=== PATIENT | female | born 1940 | race Caucasian/White ===

== ENCOUNTER 2017-12-30 09:33 | Outpatient (CLI) | payer MEDICARE | END 2017-12-30 09:34 | disposition home or self-care (01) | LOC: BICMAMMO 09:33 | PROVIDERS: ATTEND Obstetrics & Gynecology | DX: Z12.31 Encounter for screening mammogram for malignant neoplasm of breast (principal); R92.1 Mammographic calcification found on diagnostic imaging of breast | CPT/HCPCS: 77063; 77067 ==

== ENCOUNTER 2019-01-03 08:38 | Outpatient (CLI) | payer MEDICARE ==
--- NOTE | 2019-01-03 09:25 | MMO ---
Bilateral MAMMO Bilat Screen [facility]. CLINICAL HISTORY: Patient is 78 years old and is seen for screening. The patient has no family history of breast cancer. The patient has no personal history of cancer. VIEWS: The views performed were: bilateral craniocaudal with tomosynthesis and bilateral mediolateral oblique with tomosynthesis. FILMS COMPARED: The present examination has been compared to a prior imaging study performed at [facility] on 12/30/2017. MAMMOGRAM FINDINGS: The breasts are almost entirely fat. There are no suspicious masses, suspicious calcifications, or new areas of architectural distortion. IMPRESSION: THERE IS NO MAMMOGRAPHIC EVIDENCE OF MALIGNANCY. A ROUTINE FOLLOW-UP MAMMOGRAM IN 1 YEAR IS RECOMMENDED. THE RESULTS OF THIS EXAM WERE SENT TO THE PATIENT. ACR BI-RADS Category 1 - Negative MAMMOGRAPHY NOTE: 1. A negative mammogram report should not delay a biopsy if a dominant of clinically suspicious mass is present. 2. Approximately 10% to 15% of breast cancers are not detected by mammography. 3. Adenosis and dense breasts may obscure an underlying neoplasm.
== END 2019-01-03 08:39 | disposition home or self-care (01) ==
LOC: BICMAMMO 08:38
PROVIDERS: ATTEND Internal Medicine
DX: Z12.31 Encounter for screening mammogram for malignant neoplasm of breast (principal)
CPT/HCPCS: 77063; 77067

== ENCOUNTER 2020-01-10 07:46 | Outpatient (CLI) | payer MEDICARE ==
--- NOTE | 2020-01-10 08:29 | MMO ---
Bilateral MAMMO Bilat Screen [facility]. CLINICAL HISTORY: Patient is 79 years old and is seen for screening. The patient has no family history of breast cancer. The patient has no personal history of cancer. VIEWS: The views performed were: bilateral craniocaudal with tomosynthesis and bilateral mediolateral oblique with tomosynthesis. FILMS COMPARED: The present examination has been compared to prior imaging studies performed at [facility] on 12/30/2017 and 01/03/2019, and at [facility] on 09/24/2015 and 12/23/2016. This study has been interpreted with the assistance of computer-aided detection. MAMMOGRAM FINDINGS: There are scattered fibroglandular densities. There are stable benign appearing calcifications seen in both breasts. There are no suspicious masses, suspicious calcifications, or new areas of architectural distortion. IMPRESSION: THERE IS NO MAMMOGRAPHIC EVIDENCE OF MALIGNANCY. A ROUTINE FOLLOW-UP MAMMOGRAM IN 1 YEAR IS RECOMMENDED. THE RESULTS OF THIS EXAM WERE SENT TO THE PATIENT. ACR BI-RADS Category 2 - Benign finding MAMMOGRAPHY NOTE: 1. A negative mammogram report should not delay a biopsy if a dominant of clinically suspicious mass is present. 2. Approximately 10% to 15% of breast cancers are not detected by mammography. 3. Adenosis and dense breasts may obscure an underlying neoplasm. Reported by: CHEMA SUAREZ MD Electonically Signed: [id number]
== END 2020-01-10 07:47 | disposition home or self-care (01) ==
LOC: BICMAMMO 07:46
PROVIDERS: ATTEND Internal Medicine
DX: Z12.31 Encounter for screening mammogram for malignant neoplasm of breast (principal)
CPT/HCPCS: 77063; 77067

== ENCOUNTER 2021-01-14 08:48 | Outpatient (CLI) | payer MEDICARE | END 2021-01-14 08:49 | disposition home or self-care (01) | LOC: BICMAMMO 08:48 | PROVIDERS: ATTEND Internal Medicine | DX: Z12.31 Encounter for screening mammogram for malignant neoplasm of breast (principal) | CPT/HCPCS: 77063; 77067 ==

== ENCOUNTER 2022-01-29 09:08 | Outpatient (CLI) | payer MEDICARE | END 2022-01-29 09:09 | disposition home or self-care (01) | LOC: BICMAMMO 09:08 | PROVIDERS: ATTEND Internal Medicine | DX: Z12.31 Encounter for screening mammogram for malignant neoplasm of breast (principal) | CPT/HCPCS: 77063; 77067 ==

== ENCOUNTER 2023-02-12 13:45 | Inpatient (IN) | payer MEDICARE ==
[2023-02-12 14:10] LABS: #Monocytes 0.4 thou/uL (0.11-0.59); #Neutrophils 6.6 thou/uL (1.40-6.50); %Basophils 0.2 % (0.0-1.0); %Eosinophils 0.3 % (0.0-10.0); %Lymphocytes 17.5 % (21.0-51.0); %Monocytes 4.5 % (0.0-10.0); Hematocrit 39.2 % (36.0-47.0); Mean Corpuscular HGB CONC 33.2 g/dL (32.0-36.0); Mean Corpuscular Hemoglobin 32.4 pg (27.0-31.0); Mean Corpuscular Volume 97.8 fl (78.0-98.0); Mean Platelet Volume 10.3 fL (7.4-10.4); Platelet Count 274 10x3/uL (130-400); Red Blood Cell (RBC) Count 4.01 mill/uL (4.20-5.40); White Blood Cell (WBC) Count 8.6 10x3/uL (4.8-10.8)
[2023-02-12 14:35] LABS: ALT (SGPT) 11 U/L (8-55); AST (SGOT) 19 U/L (5-34); Albumin 4.6 g/dL (3.4-4.8); Alkaline Phosphatase 52 U/L (40-110); Anion Gap 15 mmol/L (10-20); BUN (Urea Nitrogen) 21 mg/dL (9.8-20.1); Bilirubin, Total 0.4 mg/dL (0.2-1.2); Calc. Creatinine Clearance 0 mL/min (70-130); Calcium 10.6 mg/dL (7.8-10.44); Carbon Dioxide 19 mmol/L (23-31); Chloride 102 mmol/L (98-107); Estimated GFR 71; Globulin 3.1 g/dL (2.4-3.5); Glucose 171 mg/dL (83-110); Potassium 3.8 mmol/L (3.5-5.1); Protein, Total 7.7 g/dL (5.8-8.1); Sodium 132 mmol/L (136-145)
[2023-02-12 14:37] LABS: Troponin I Less than 0.010 ng/mL (< 0.028)
[2023-02-12 16:52] LABS: Bacteria/HPF None Seen HPF (None Seen); Bilirubin Negative (Negative); Blood, Urine Negative (Negative); CAUTI Indications for Culture Dysuria,urgency,freq; Clarity Clear (Clear); Glucose, Urine (Dipstick) Normal (Negative); Ketone, Urine Negative (Negative); Leukocyte Negative Leu/uL (Negative); Nitrite Negative (Negative); Protein, Urine (Dipstick) Negative (Neg-Trace); RBC/HPF 0-3 HPF (0-3); Specific Gravity, Urine 1.018 (1.002-1.036); Squamous Epithelial None Seen HPF (0-3); Urobilinogen Normal mg/dL (Less than 2); WBC/HPF 0-3 HPF (0-3); pH, Urine 5.5 (5.0-9.0)
[2023-02-12 16:54] LABS: Urine Culture Reflex No No
[2023-02-12] MEDS ORDERED: Ondansetron PF 4 MG/2 ML Vial ONE (18:31)
[2023-02-12] MEDS ORDERED: Meclizine HCl 25 MG TAB ONE (18:39)
[2023-02-12] MEDS ORDERED: Ondansetron PF 4 MG/2 ML Vial IVP PRN (18:57)
[2023-02-12] MEDS ORDERED: Ondansetron ODT 4 MG TAB PO PRN (18:57)
[2023-02-12] MEDS ORDERED: Acetaminophen 325 MG TAB PO PRN (19:01)
[2023-02-12] MEDS ORDERED: Sodium Chloride 0.9% 1,000 ML IV SCH (19:15)
[2023-02-12 22:46] VITALS: BMI 28.7
[2023-02-13] MEDS ORDERED: Meclizine HCl 25 MG TAB PO PRN (03:00)
[2023-02-13 05:17] LABS: #Monocytes 0.7 thou/uL (0.11-0.59); #Neutrophils 5.2 thou/uL (1.40-6.50); %Basophils 0.1 % (0.0-1.0); %Eosinophils 0.3 % (0.0-10.0); %Lymphocytes 22.4 % (21.0-51.0); %Neutrophils 67.9 % (42.0-75.0); Hematocrit 35.2 % (36.0-47.0); Hemoglobin 11.5 g/dL (12.0-16.0); Mean Corpuscular HGB CONC 32.7 g/dL (32.0-36.0); Mean Corpuscular Hemoglobin 32.7 pg (27.0-31.0); Mean Platelet Volume 10.5 fL (7.4-10.4); Platelet Count 227 10x3/uL (130-400); RBC Distribution Width 12.1 % (11.5-14.5); Red Blood Cell (RBC) Count 3.52 mill/uL (4.20-5.40); White Blood Cell (WBC) Count 7.6 10x3/uL (4.8-10.8)
[2023-02-13 05:39] LABS: Anion Gap 10 mmol/L (10-20); BUN (Urea Nitrogen) 13 mg/dL (9.8-20.1); Calc. Creatinine Clearance 72 mL/min (70-130); Calcium 9.1 mg/dL (7.8-10.44); Carbon Dioxide 24 mmol/L (23-31); Chloride 106 mmol/L (98-107); Estimated GFR 86; Glucose 91 mg/dL (83-110); Sodium 136 mmol/L (136-145)
[2023-02-13] MEDS: Atorvastatin Calcium 40 MG TAB PO SCH (20:21)
[2023-02-14 06:18] LABS: #Eosinphils 0.1 thou/uL (0.0-0.7); #Monocytes 0.5 thou/uL (0.11-0.59); #Neutrophils 3.9 thou/uL (1.40-6.50); %Basophils 0.3 % (0.0-1.0); %Eosinophils 1.4 % (0.0-10.0); %Lymphocytes 31.8 % (21.0-51.0); %Monocytes 7.9 % (0.0-10.0); %Neutrophils 58.1 % (42.0-75.0); Hematocrit 35.3 % (36.0-47.0); Hemoglobin 11.5 g/dL (12.0-16.0); Mean Corpuscular HGB CONC 32.6 g/dL (32.0-36.0); Mean Corpuscular Hemoglobin 32.5 pg (27.0-31.0); Mean Corpuscular Volume 99.7 fl (78.0-98.0); Mean Platelet Volume 10.7 fL (7.4-10.4); Platelet Count 231 10x3/uL (130-400); RBC Distribution Width 12.3 % (11.5-14.5); Red Blood Cell (RBC) Count 3.54 mill/uL (4.20-5.40); White Blood Cell (WBC) Count 6.6 10x3/uL (4.8-10.8)
[2023-02-14 06:39] LABS: Anion Gap 11 mmol/L (10-20); BUN (Urea Nitrogen) 17 mg/dL (9.8-20.1); Calc. Creatinine Clearance 68 mL/min (70-130); Carbon Dioxide 23 mmol/L (23-31); Chloride 109 mmol/L (98-107); Estimated GFR 82; Glucose 91 mg/dL (83-110); Sodium 139 mmol/L (136-145)
[2023-02-14] MEDS: Amlodipine 5 MG TAB PO SCH (08:53)
[2023-02-14] MEDS: Lisinopril 20 MG TAB PO SCH (08:53)
[2023-02-14] MEDS ORDERED: hydrALAZINE 25 MG TAB PO PRN (11:52)
[2023-02-14] MEDS ORDERED: Polyethylene Glycol 3350 17 GM Packet PO PRN (11:59)
[2023-02-14] MEDS ORDERED: Electrolyte Replacement Protocol FS PRN (12:00)
[2023-02-14] MEDS ORDERED: Electrolyte Replacement Protocol 1 EACH FS SCH (12:00)
[2023-02-14 12:37] LABS: Magnesium 2.1 mg/dL (1.6-2.6)
[2023-02-14 16:09] LABS: Phosphorus 2.3 mg/dL (2.3-4.7)
[2023-02-14] MEDS: Heparin 5,000 UNITS/ML VIAL SC SCH (20:21)
[2023-02-14] MEDS: Atorvastatin Calcium 40 MG TAB PO SCH (20:22)
[2023-02-14] MEDS: Cyanocobalamin (Vitamin B-12) 1,000 MCG TAB PO SCH (20:22)
[2023-02-14] MEDS: Folic Acid 1 MG TAB PO SCH (20:22)
[2023-02-14] MEDS: Docusate 100 MG CAP PO SCH (20:22)
[2023-02-14] MEDS: Multivit, Therapeutic 1 TAB PO SCH (20:22)
[2023-02-15 04:52] LABS: #Eosinphils 0.1 thou/uL (0.0-0.7); #Monocytes 0.6 thou/uL (0.11-0.59); #Neutrophils 3.9 thou/uL (1.40-6.50); %Basophils 0.5 % (0.0-1.0); %Eosinophils 1.4 % (0.0-10.0); %Lymphocytes 27.3 % (21.0-51.0); %Neutrophils 61.6 % (42.0-75.0); Hematocrit 36.3 % (36.0-47.0); Hemoglobin 12.2 g/dL (12.0-16.0); Mean Corpuscular HGB CONC 33.6 g/dL (32.0-36.0); Mean Corpuscular Hemoglobin 32.9 pg (27.0-31.0); Mean Corpuscular Volume 97.8 fl (78.0-98.0); Mean Platelet Volume 10.4 fL (7.4-10.4); Platelet Count 218 10x3/uL (130-400); RBC Distribution Width 12.2 % (11.5-14.5); Red Blood Cell (RBC) Count 3.71 mill/uL (4.20-5.40); White Blood Cell (WBC) Count 6.3 10x3/uL (4.8-10.8)
[2023-02-15 05:20] LABS: Anion Gap 12 mmol/L (10-20); BUN (Urea Nitrogen) 16 mg/dL (9.8-20.1); Calc. Creatinine Clearance 74 mL/min (70-130); Calcium 9.1 mg/dL (7.8-10.44); Carbon Dioxide 22 mmol/L (23-31); Chloride 107 mmol/L (98-107); Estimated GFR 87; Glucose 100 mg/dL (83-110); Potassium 3.7 mmol/L (3.5-5.1); Sodium 137 mmol/L (136-145)
[2023-02-15] MEDS: Docusate 100 MG CAP PO SCH ×2 (09:11→20:09)
[2023-02-15] MEDS: Amlodipine 5 MG TAB PO SCH (09:11)
[2023-02-15] MEDS: Lisinopril 20 MG TAB PO SCH (09:11)
[2023-02-15] MEDS: Heparin 5,000 UNITS/ML VIAL SC SCH ×2 (09:12→20:08)
[2023-02-15] MEDS ORDERED: Potassium Chloride 20 MEQ TAB PO SCH (09:30)
[2023-02-15] MEDS: Atorvastatin Calcium 40 MG TAB PO SCH (20:09)
[2023-02-15] MEDS: Multivit, Therapeutic 1 TAB PO SCH (20:09)
[2023-02-15] MEDS: Cyanocobalamin (Vitamin B-12) 1,000 MCG TAB PO SCH (20:09)
[2023-02-15] MEDS: Folic Acid 1 MG TAB PO SCH (20:09)
[2023-02-16] MEDS ORDERED: Midazolam HCl 2 mg/2 ml Vial ONE (08:27)
[2023-02-16] MEDS ORDERED: fentaNYL 50 mcg/mL 1 mL Vial ONE (08:27)
[2023-02-16] MEDS ORDERED: CEFAZOLIN 1 GM VIAL ONE (08:28)
[2023-02-16] MEDS ORDERED: Lidocaine 1% (PF) 30 ML VIAL ONE ×2 (08:28→09:53)
[2023-02-16] MEDS ORDERED: Gentamicin 80 MG/2 ML VIAL ONE (08:28)
[2023-02-16] MEDS ORDERED: CEFAZOLIN 2 GM VIAL ONE (08:28)
[2023-02-16] MEDS ORDERED: Sodium Chloride 0.9% 1,000 ML IV SCH (08:30)
[2023-02-16] MEDS ORDERED: Aspirin 81 mg Enteric Coated Tablet PO SCH (09:00)
[2023-02-16] MEDS: Lisinopril 20 MG TAB PO SCH (11:04)
[2023-02-16] MEDS: Amlodipine 5 MG TAB PO SCH (11:04)
[2023-02-16] MEDS: Docusate 100 MG CAP PO SCH (11:04)
[2023-02-16] MEDS ORDERED: Cephalexin 250 MG CAP PO SCH (15:00)
[2023-02-16 15:33] VITALS: BP 160/70
[2023-02-16 15:49] VITALS: TEMP 98.4
== END 2023-02-16 18:50 | disposition home or self-care (01) | DRG 243 ==
LOC: ERS 13:45 → ERHOLD 18:43 → 2SE 22:23 → OBSVTOIN 02-13 16:42
PROVIDERS: ADMIT Physician Assistant; ATTEND Internal Medicine
PROC: 0JH606Z Insertion of Pacemaker, Dual Chamber into Chest Subcutaneous Tissue and Fascia, Open Approach (ICD-10-PCS; principal; 2023-02-16)
PROC: 02H63JZ Insertion of Pacemaker Lead into Right Atrium, Percutaneous Approach (ICD-10-PCS; 2023-02-16)
PROC: 02HK3JZ Insertion of Pacemaker Lead into Right Ventricle, Percutaneous Approach (ICD-10-PCS; 2023-02-16)
PROC: B5171ZZ Fluoroscopy of Left Subclavian Vein using Low Osmolar Contrast (ICD-10-PCS; 2023-02-16)
DX: I49.5 Sick sinus syndrome (principal); E87.1 Hypo-osmolality and hyponatremia; E87.20 Acidosis, unspecified; E78.5 Hyperlipidemia, unspecified; Z90.49 Acquired absence of other specified parts of digestive tract; Z87.891 Personal history of nicotine dependence; Z79.899 Other long term (current) drug therapy; Z98.49 Cataract extraction status, unspecified eye; Z79.82 Long term (current) use of aspirin; I44.30 Unspecified atrioventricular block; I12.9 Hypertensive chronic kidney disease with stage 1 through stage 4 chronic kidney disease, or unspecified chronic kidney disease; N18.2 Chronic kidney disease, stage 2 (mild); D53.9 Nutritional anemia, unspecified; I35.0 Nonrheumatic aortic (valve) stenosis; E86.0 Dehydration
CPT/HCPCS: 33208; 36415; 51701; 70450; 71045; 80048; 80053; 81001; 83735; 84100; 84484; 85025; 93005; 93306; 93798; 96361; 96374; 99152; 99153; C1785; C1898; G0378; J0690; J1580; J1644; J2001; J2250; J2405; J3010; J7050

== ENCOUNTER 2023-04-08 08:36 | Outpatient (CLI) | payer MEDICARE | END 2023-04-08 08:37 | disposition home or self-care (01) | LOC: BICMAMMO 08:36 | PROVIDERS: ATTEND Family Medicine | DX: Z12.31 Encounter for screening mammogram for malignant neoplasm of breast (principal) | CPT/HCPCS: 77063; 77067 ==

== ENCOUNTER 2023-06-02 15:02 | Observation (INO) | payer MEDICARE ==
[2023-06-02] MEDS ORDERED: Labetalol HCl 100 MG/20 ML VIAL ONE (15:59)
[2023-06-02 16:17] LABS: Bacteria/HPF None Seen HPF (None Seen); Bilirubin Negative (Negative); Blood, Urine Negative (Negative); CAUTI Indications for Culture Dysuria,urgency,freq; Clarity Clear (Clear); Glucose, Urine (Dipstick) Normal (Negative); Ketone, Urine Negative (Negative); Leukocyte 75 Leu/uL (Negative); Nitrite Negative (Negative); Protein, Urine (Dipstick) Negative (Neg-Trace); RBC/HPF 0-3 HPF (0-3); Specific Gravity, Urine 1.006 (1.002-1.036); Squamous Epithelial 0-3 HPF (0-3); Urobilinogen Normal mg/dL (Less than 2); pH, Urine 6.5 (5.0-9.0)
[2023-06-02 16:18] LABS: Urine Culture Reflex No No
[2023-06-02 16:40] LABS: #Eosinphils 0.1 thou/uL (0.0-0.7); #Monocytes 0.7 thou/uL (0.11-0.59); #Neutrophils 4.3 thou/uL (1.40-6.50); %Basophils 0.3 % (0.0-1.0); %Eosinophils 1.2 % (0.0-10.0); %Lymphocytes 25.7 % (21.0-51.0); %Monocytes 9.6 % (0.0-10.0); %Neutrophils 63.1 % (42.0-75.0); Hematocrit 39.6 % (36.0-47.0); Hemoglobin 13.4 g/dL (12.0-16.0); Mean Corpuscular HGB CONC 33.8 g/dL (32.0-36.0); Mean Corpuscular Hemoglobin 32.9 pg (27.0-31.0); Mean Corpuscular Volume 97.3 fl (78.0-98.0); Mean Platelet Volume 10.4 fL (7.4-10.4); Platelet Count 272 10x3/uL (130-400); RBC Distribution Width 12.3 % (11.5-14.5); Red Blood Cell (RBC) Count 4.07 mill/uL (4.20-5.40); White Blood Cell (WBC) Count 6.8 10x3/uL (4.8-10.8)
[2023-06-02 17:00] LABS: ALT (SGPT) 11 U/L (8-55); AST (SGOT) 16 U/L (5-34); Albumin 4.8 g/dL (3.4-4.8); Alkaline Phosphatase 58 U/L (40-110); Anion Gap 12 mmol/L (10-20); BUN (Urea Nitrogen) 17 mg/dL (9.8-20.1); Bilirubin, Total 0.5 mg/dL (0.2-1.2); Calc. Creatinine Clearance 0 mL/min (70-130); Calcium 10.2 mg/dL (7.8-10.44); Carbon Dioxide 29 mmol/L (23-31); Chloride 102 mmol/L (98-107); Estimated GFR 65; Glucose 109 mg/dL (83-110); Potassium 3.9 mmol/L (3.5-5.1); Protein, Total 7.8 g/dL (5.8-8.1); Sodium 139 mmol/L (136-145)
[2023-06-02 17:04] LABS: Troponin I 0.012 ng/mL (< 0.028)
[2023-06-02 20:37] VITALS: BMI 27.9
[2023-06-02] MEDS ORDERED: Acetaminophen 325 MG TAB PO PRN (23:18)
[2023-06-02] MEDS ORDERED: Guaifenesin DM 100-10/5 ML UDCUP PO PRN (23:18)
[2023-06-02] MEDS ORDERED: Ondansetron PF 4 MG/2 ML Vial IVP PRN (23:18)
[2023-06-02] MEDS ORDERED: Ondansetron ODT 4 MG TAB PO PRN (23:18)
[2023-06-02] MEDS ORDERED: Meclizine HCl 25 MG TAB PO PRN (23:18)
[2023-06-02] MEDS ORDERED: Senokot S 8.6-50 MG TAB PO PRN (23:18)
[2023-06-02] MEDS ORDERED: Acetaminophen 650 MG Suppository PR PRN (23:18)
[2023-06-02] MEDS ORDERED: Multivit, Therapeutic 1 TAB PO SCH (23:30)
[2023-06-03 05:28] LABS: Anion Gap 11 mmol/L (10-20); BUN (Urea Nitrogen) 20 mg/dL (9.8-20.1); Calc. Creatinine Clearance 62 mL/min (70-130); Calcium 9.1 mg/dL (7.8-10.44); Carbon Dioxide 23 mmol/L (23-31); Chloride 107 mmol/L (98-107); Estimated GFR 75; Glucose 99 mg/dL (83-110); Potassium 3.8 mmol/L (3.5-5.1); Sodium 137 mmol/L (136-145)
[2023-06-03 06:26] LABS: #Eosinphils 0.1 thou/uL (0.0-0.7); #Monocytes 0.6 thou/uL (0.11-0.59); #Neutrophils 4.1 thou/uL (1.40-6.50); %Basophils 0.4 % (0.0-1.0); %Eosinophils 1.9 % (0.0-10.0); %Lymphocytes 26.6 % (21.0-51.0); %Monocytes 9.1 % (0.0-10.0); %Neutrophils 61.7 % (42.0-75.0); Hematocrit 35.6 % (36.0-47.0); Hemoglobin 11.7 g/dL (12.0-16.0); Mean Corpuscular HGB CONC 32.9 g/dL (32.0-36.0); Mean Corpuscular Hemoglobin 32.7 pg (27.0-31.0); Mean Corpuscular Volume 99.4 fl (78.0-98.0); Mean Platelet Volume 10.4 fL (7.4-10.4); Platelet Count 243 10x3/uL (130-400); RBC Distribution Width 12.5 % (11.5-14.5); Red Blood Cell (RBC) Count 3.58 mill/uL (4.20-5.40); White Blood Cell (WBC) Count 6.7 10x3/uL (4.8-10.8)
[2023-06-03] MEDS ORDERED: Amlodipine 5 MG TAB PO SCH (09:00)
[2023-06-03] MEDS ORDERED: Lisinopril 20 MG TAB PO SCH (09:00)
[2023-06-03 16:25] VITALS: BP 123/56; TEMP 97.9
[2023-06-03] MEDS ORDERED: Atorvastatin Calcium 40 MG TAB PO SCH (21:00)
[2023-06-03] MEDS ORDERED: Multivit, Therapeutic 1 TAB PO SCH (21:00)
== END 2023-06-03 16:30 | disposition home or self-care (01) ==
LOC: ERS 15:02 → 2SE 17:46
PROVIDERS: ADMIT Emergency Medicine; ATTEND Emergency Medicine
DX: R42 Dizziness and giddiness (principal); I10 Essential (primary) hypertension; E78.5 Hyperlipidemia, unspecified; I49.5 Sick sinus syndrome; Z95.0 Presence of cardiac pacemaker; Z79.899 Other long term (current) drug therapy; Z90.49 Acquired absence of other specified parts of digestive tract; Z87.891 Personal history of nicotine dependence
CPT/HCPCS: 70450; 70551; 71045; 80048; 80053; 81001; 83605; 83735; 84484; 85025 ×2; 93005; 93880; 96361; 96372; 96374; 97116; 99285; G0378 ×3; 36415; J1650

== ENCOUNTER 2025-03-31 06:02 | Day surgery (SDC) | payer OTHER ==
[2025-03-27 11:19] VITALS: BMI 24.7
[2025-03-31] MEDS ORDERED: Adenosine 6 mg (2 mL) VIAL ONE (06:46)
[2025-03-31] MEDS ORDERED: Heparin 10,000 UNITS/ 10 ML VIAL ONE (06:46)
[2025-03-31] MEDS ORDERED: Lidocaine 1% (PF) 30 ML VIAL ONE (06:46)
[2025-03-31] MEDS ORDERED: PHENYLEPHRINE-NS 100 MCG/ML 10 ML SYRINGE ONE (06:46)
[2025-03-31] MEDS ORDERED: Nitroglycerin 50 MG/250 ML BOT 0 ML ONE (06:46)
[2025-03-31] MEDS ORDERED: Iopamidol 370 76% 100 ML VIAL ONE (12:49)
== END 2025-03-31 14:02 | disposition home or self-care (01) ==
LOC: CCL 06:02
PROVIDERS: ATTEND Internal Medicine Cardiovascular Disease
PROC: 4A023N8 Measurement of Cardiac Sampling and Pressure, Bilateral, Percutaneous Approach (ICD-10-PCS; principal; 2025-03-31)
DX: I35.0 Nonrheumatic aortic (valve) stenosis (principal); I35.1 Nonrheumatic aortic (valve) insufficiency; I77.9 Disorder of arteries and arterioles, unspecified; I10 Essential (primary) hypertension; E78.00 Pure hypercholesterolemia, unspecified; E04.1 Nontoxic single thyroid nodule; Z95.0 Presence of cardiac pacemaker; Z98.49 Cataract extraction status, unspecified eye; Z90.49 Acquired absence of other specified parts of digestive tract; Z90.89 Acquired absence of other organs; Z79.891 Long term (current) use of opiate analgesic; Z79.899 Other long term (current) drug therapy
CPT/HCPCS: 93460; C1751; C1769 ×2; C1894; C1984; J1644; J2250; Q9967; 93567; 99152; 99153; J0153; J0461